=== PATIENT | female | born 1975 | race Caucasian/White ===

== ENCOUNTER → 2016-11-28 | Outpatient (CLI) | payer BC ==
[2016-11-28 16:46] LABS: CHLORIDE,CL 106 mmol/L (98-110); SODIUM,NA 140 mmol/L (136-146)
== END ==
LOC: MW.CHIM 15:25
PROVIDERS: ATTEND Internal Medicine
DX: M79.7 Fibromyalgia (principal); M25.50 Pain in unspecified joint
CPT/HCPCS: 36415; 80048; 85025; 85652; 86430

== ENCOUNTER 2018-10-02 11:05 | Day surgery (SDC) | payer BC ==
[2018-10-02] MEDS ORDERED: Pantoprazole 40 MG Vial IVPUSH ONE (11:21)
[2018-10-02] MEDS ORDERED: HYDROmorphone 1 MG/ML Syringe ONE (11:21)
[2018-10-02] MEDS ORDERED: Ondansetron 4 MG/2 ML SDV ONE ×2 (11:21→15:33)
[2018-10-02] MEDS ORDERED: Ondansetron 4 MG/2 ML SDV IVPUSH ONE (11:21)
[2018-10-02] MEDS ORDERED: Sodium Chloride 0.9% 1,000 ML IV ONE ×2 (11:21→12:11)
[2018-10-02] MEDS ORDERED: HYDROmorphone 1 MG/ML Syringe IVPUSH ONE (11:21)
[2018-10-02] MEDS ORDERED: Pantoprazole 40 MG Vial ONE (11:22)
[2018-10-02] MEDS ORDERED: Sodium Chloride 0.9% 20 ML ONE (11:23)
[2018-10-02] MEDS ORDERED: Ketorolac 30 MG/ML SDV IVPUSH ONE (11:24)
--- NOTE | 2018-10-02 11:27 | EDM.PDOC ---
ED HPI GENERAL MEDICAL PROBLEM - General Chief Complaint: Gastrointestinal Problem Stated Complaint: FLU Time Seen by Provider: 10/02/18 11:15 - History of Present Illness INITIAL COMMENTS - FREE TEXT/NARRATIVE: HISTORY AND PHYSICAL: History of present illness: Patient's 42-year-old white female who presents with concern of nausea vomiting diarrhea has been with associated abdominal pain and has been quite severe at times she had prior bowel obstruction she has had cholecystectomy and hysterectomy. No reported fever chills trauma or other concern Review of systems: As per history of present illness and below otherwise all systems reviewed and negative. Past medical history: As per history of present illness and as reviewed below otherwise noncontributory. Surgical history: As per history of present illness and as reviewed below otherwise noncontributory. Social history: No reported history of drug or alcohol abuse. Family history: As per history of present illness and as reviewed below otherwise noncontributory. Physical exam: HEENT: Atraumatic, normocephalic, pupils reactive, negative for conjunctival pallor or scleral icterus, mucous membranes dry, throat clear, neck supple, nontender, trachea midline. Lungs: Clear to auscultation, breath sounds equal bilaterally, chest nontender. Heart: S1S2, regular, negative for clicks, rubs, or JVD. Abdomen: Soft, nondistended, no localized tenderness. Negative for masses or hepatosplenomegaly. Negative for costovertebral tenderness. Pelvis: Stable nontender. Genitourinary: Deferred. Rectal: Deferred. Extremities: Atraumatic, negative for cords or calf pain. Neurovascular unremarkable. Neuro: Awake, alert, oriented. Cranial nerves II through XII unremarkable. Cerebellum unremarkable. Motor and sensory unremarkable throughout. Exam nonfocal. Diagnostics: CBC CMP amylase lipase UA chest x-ray CT abdomen and pelvis stool for C&S O&P and C. difficile Therapeutics: Saline 1 L bolus Zofran 4 mg IV Toradol 30 mg IV Dilaudid 1 mg IV Protonix 80 milligrams IV Impression: #1 vomiting/diarrhea with dehydration #2 abdominal pain prior bowel obstruction Definitive disposition and diagnosis as appropriate pending reevaluation and review of above. Abdominal Pain Score (Numeric/FACES): 8 - Related Data Allergies Allergy/AdvReac Type Severity Reaction Status Date / Time clarithromycin [From Biaxin] Allergy Rash Verified 10/02/18 11:14 latex Allergy Rash Verified 10/02/18 11:13 levofloxacin [From Levaquin] Allergy Rash Verified 10/02/18 11:14 moxifloxacin [From Avelox] Allergy Swelling Verified 10/02/18 11:14 Home Meds: Home Meds Sertraline [Zoloft] 25 mg PO DAILY 10/02/18 [History] traMADol [Ultram] 50 mg PO TID 10/02/18 [History] Past Medical History Gastrointestinal History: Reports: Bowel Obstruction Other [employer] History: hysterectomy - Infectious Disease History Infectious Disease History: Reports: Chicken Pox - Past Surgical History GI Surgical History: Reports: Cholecystectomy Social & Family History - Family History Family Medical History: Noncontributory - Tobacco Use Smoking Status *Q: Current Every Day Smoker Years of Tobacco use: 20 Packs/Tins Daily: 0.5 - Caffeine Use Caffeine Use: Reports: Coffee, Soda - Recreational Drug Use Recreational Drug Use: No ED ROS GENERAL - Review of Systems Review Of Systems: ROS reveals no pertinent complaints other than HPI. ED EXAM, GENERAL - Physical Exam Exam: See Below (See dictation) Course - Vital Signs Last Recorded V/S: Last Vital Signs Temp 36.1 C 10/02/18 11:15 Pulse 61 10/02/18 11:42 Resp 16 10/02/18 11:42 BP 111/54 L 10/02/18 11:42 Pulse Ox 98 10/02/18 11:42 - Orders/Labs/Meds Orders: Active Orders 24 hr Category Date Time Status EKG Documentation Completion [RC] STAT Care 10/02/18 11:20 Active CDIFF TOX A+B [OP] Stat Lab 10/02/18 11:28 Ordered CULTURE STOOL + CAMPY+SHIGATOX [RM] Stat Lab 10/02/18 11:28 Ordered UA RFX SOFÍA AND CULT IF INDIC [URIN] Stat Lab 10/02/18 11:20 Ordered Sodium Chloride 0.9% [Normal Saline] 1,000 ml Med 10/02/18 12:11 Active IV .Bolus Medication Orders Sodium Chloride (Normal Saline) 1,000 mls @ 999 mls/hr IV .Bolus ONE Stop: 10/02/18 13:11 Labs: Laboratory Tests 10/02/18 10/02/18 10/02/18 Range/Units 11:22 11:22 11:22 WBC 18.41 H (4.0-11.0) K/uL RBC 4.52 (4.30-5.90) M/uL Hgb 14.3 (12.0-16.0) g/dL Hct 40.5 (36.0-46.0) % MCV 89.6 (80.0-98.0) fL MCH 31.6 (27.0-32.0) pg MCHC 35.3 (31.0-37.0) g/dL RDW Std Deviation 41.6 (28.0-62.0) fl RDW Coeff of John 13 (11.0-15.0) % Plt Count 277 (150-400) K/uL MPV 9.50 (7.40-12.00) fL Neut % (Auto) 90.4 H (48.0-80.0) % Lymph % (Auto) 7.1 L (16.0-40.0) % [place] % (Auto) 2.1 (0.0-15.0) % Eos % (Auto) 0.2 (0.0-7.0) % Baso % (Auto) 0.2 (0.0-1.5) % Neut # (Auto) 16.6 H (1.4-5.7) K/uL Lymph # (Auto) 1.3 (0.6-2.4) K/uL [place] # (Auto) 0.4 (0.0-0.8) K/uL Eos # (Auto) 0.0 (0.0-0.7) K/uL Baso # (Auto) 0.0 (0.0-0.1) K/uL Nucleated RBC % 0.0 /100WBC Nucleated RBCs # 0 K/uL INR 0.99 Sodium 140 (136-145) mmol/L Potassium 3.6 (3.5-5.1) mmol/L Chloride 104 (98-107) mmol/L Carbon Dioxide 24.6 (21.0-32.0) mmol/L BUN 13 (7.0-18.0) mg/dL Creatinine 0.7 (0.6-1.0) mg/dL Est Cr Clr Drug Dosing 87.49 mL/min Estimated GFR (MDRD) > 60.0 ml/min Glucose 121 H (74-106) mg/dL Calcium 8.9 (8.5-10.1) mg/dL Total Bilirubin 0.5 (0.2-1.0) mg/dL AST 24 (15-37) IU/L ALT 29 (14-63) IU/L Alkaline Phosphatase 64 (46-116) U/L Total Protein 6.9 (6.4-8.2) g/dL Albumin 3.7 (3.4-5.0) g/dL Globulin 3.2 (2.6-4.0) g/dL Albumin/Globulin Ratio 1.2 (0.9-1.6) Amylase 77 (25-115) U/L Lipase 85 (73-393) U/L Meds: Medications Generic Name Dose Route Start Last Admin Trade Name Freq PRN Reason Stop Dose Admin Sodium Chloride 1,000 mls @ 999 mls/hr 10/02/18 12:11 Normal Saline IV 10/02/18 13:11 .Bolus ONE Discontinued Medications Generic Name Dose Route Start Last Admin Trade Name Freq PRN Reason Stop Dose Admin Hydromorphone HCl 1 mg 10/02/18 11:21 10/02/18 11:25 Dilaudid IVPUSH 10/02/18 11:22 1 mg ONETIME ONE Administration Hydromorphone HCl Confirm 10/02/18 11:21 10/02/18 12:03 Dilaudid Administered 10/02/18 11:22 Not Given Dose 1 mg .ROUTE .STK-MED ONE Sodium Chloride 1,000 mls @ 999 mls/hr 10/02/18 11:21 10/02/18 11:25 Normal Saline IV 10/02/18 12:21 999 mls/hr STAT ONE Administration Sodium Chloride Confirm 10/02/18 11:23 10/02/18 12:03 Normal Saline Administered 10/02/18 11:24 Not Given Dose 20 mls @ as directed .ROUTE .STK-MED ONE Ketorolac Tromethamine 30 mg 10/02/18 11:24 10/02/18 11:27 Toradol IVPUSH 10/02/18 11:25 30 mg ONETIME ONE Administration Ondansetron HCl 4 mg 10/02/18 11:21 10/02/18 11:25 Zofran IVPUSH 10/02/18 11:22 4 mg ONETIME ONE Administration Ondansetron HCl Confirm 10/02/18 11:21 10/02/18 12:03 Zofran Administered 10/02/18 11:22 Not Given Dose 4 mg .ROUTE .STK-MED ONE Pantoprazole Sodium 80 mg 10/02/18 11:21 10/02/18 11:27 Protonix Iv IVPUSH 10/02/18 11:22 80 mg .BOLUS ONE Administration Pantoprazole Sodium Confirm 10/02/18 11:22 10/02/18 12:03 Protonix Iv Administered 10/02/18 11:23 Not Given Dose 80 mg .ROUTE .STK-MED ONE Departure - Departure Time of Disposition: 12:34 Disposition: Refer to Observation Condition: Good Clinical Impression: Abdominal pain - Discharge Information Referrals: PCP,Unknown [Primary Care Provider] - Forms: ED Department Discharge - My Orders Last 24 Hours: My Active Orders 10/02/18 11:20 EKG Documentation Completion [RC] STAT UA RFX SOFÍA AND CULT IF INDIC [URIN] Stat 10/02/18 11:28 CDIFF TOX A+B [OP] Stat CULTURE STOOL + CAMPY+SHIGATOX [RM] Stat 10/02/18 12:11 Sodium Chloride 0.9% [Normal Saline] 1,000 ml IV .Bolus - Assessment/Plan Last 24 Hours: My Active Orders 10/02/18 11:20 EKG Documentation Completion [RC] STAT UA RFX SOFÍA AND CULT IF INDIC [URIN] Stat 10/02/18 11:28 CDIFF TOX A+B [OP] Stat CULTURE STOOL + CAMPY+SHIGATOX [RM] Stat 10/02/18 12:11 Sodium Chloride 0.9% [Normal Saline] 1,000 ml IV .Bolus
[2018-10-02 11:59] LABS: CHLORIDE,CL 104 mmol/L (98-107); SODIUM,NA 140 mmol/L (136-145)
--- NOTE | 2018-10-02 12:06 | CR ---
EXAMINATION: Portable chest radiograph. HISTORY: Shortness of breath. FINDINGS: The trachea is midline. The cardiomediastinal silhouette is within normal limits. No pulmonary infiltrates, effusions or pneumothorax. Osseous structures appear unremarkable. IMPRESSION: No acute cardiopulmonary process.
--- NOTE | 2018-10-02 12:14 | CT ---
CT of the abdomen and pelvis without contrast. HISTORY: Pain TECHNIQUE: Axial CT images were obtained of the abdomen and pelvis without contrast. Coronal and sagittal reconstructions obtained. FINDINGS: The lung bases are clear, no pleural effusion. The liver, spleen, adrenal glands, and pancreas appear unremarkable for noncontrast examination. Cholecystectomy clips are noted. There is no bulky retroperitoneal lymphadenopathy. No abdominal ascites. There are no calcifications noted within the kidneys or along the courses of the ureters bilaterally. The large and small bowel are normal in caliber without evidence of obstruction. There is free fluid noted within the pelvis. The appendix is borderline in size at 6 mm with adjacent stranding. The urinary bladder is decompressed. No free air. Increased density noted within the vaginal cuff, this may be secondary to recent hysterectomy, correlate with procedural date. The visualized osseous structures appear normal. IMPRESSION: 1. The appendix is borderline in size adjacent stranding and free fluid. However the majority of the free fluid is lower within the pelvis, and it is uncertain whether this is secondary to appendicitis or if the free pelvic fluid is just incidentally adjacent to the appendix. This is difficult to differentiate without contrast.
--- NOTE | 2018-10-02 13:03 | PCM.HP ---
H&P History of Present Illness - General Date of Service: 10/02/18 Admit Problem/Dx: Admission Diagnosis/Problem Admission Diagnosis/Problem Abdominal pain Source of Information: Patient History Limitations: Reports: No Limitations - History of Present Illness Initial Comments - Free Text/Narative: This 42 year old female with pmh of arthritis and hx of cholecystectomy presented to the ED today with concerns of severe abdominal pain that started last night. She reports post cholecystectomy she developed an ileus and intermittently she feels her body is near this and takes some meds to help. She tried this last night taking some gas X, Zantac but felt that didn't help much. The pain is crampy in nature and initially started in her LUQ and has moved down to LLQ and to her midline. She reports nausea and vomiting. No fevers or chills. No chest pain or SOB. No urinary concerns. In the ED leukocytosis noted at 18,410. BUN 13 and Cr 0.7. Lipase 85. CXR negative. Abd/pelvis CT obtained which reveals appendix is borderline in size with adjacent stranding and free fluid. However the majority of the free fluid is lower within the pelvis, it is uncertain whether this is secondary to appendicitis or if the free pelvic fluid is just incidentally adjacent to the appendix. Dr Moreno consulted in the ED regarding CT findings. In the ED she was given Dilaudid and Toradol for pain along with Zofran and Protonix. NS x2 boluses given. Afebrile and normotensive in the ED. Abdominal Pain Score (Numeric/FACES): 8 - Related Data Allergies/Adverse Reactions: Allergies Allergy/AdvReac Type Severity Reaction Status Date / Time clarithromycin [From Biaxin] Allergy Rash Verified 10/02/18 11:14 latex Allergy Rash Verified 10/02/18 11:13 levofloxacin [From Levaquin] Allergy Rash Verified 10/02/18 11:14 moxifloxacin [From Avelox] Allergy Swelling Verified 10/02/18 11:14 Home Medications: Home Meds Sertraline [Zoloft] 25 mg PO DAILY 10/02/18 [History] traMADol [Ultram] 50 mg PO TID 10/02/18 [History] Past Medical History Cardiovascular History: Reports: None. Denies: Blood Clots/VTE/DVT, CAD, Hypertension, CT Respiratory History: Reports: None. Denies: Asthma, COPD Gastrointestinal History: Reports: Bowel Obstruction Genitourinary History: Reports: None Other OB/BYN History: hysterectomy Musculoskeletal History: Reports: Osteoarthritis (hands) Psychiatric History: Reports: Depression - Infectious Disease History Infectious Disease History: Reports: Chicken Pox - Past Surgical History GI Surgical History: Reports: Cholecystectomy Female Surgical History: Reports: Hysterectomy Social & Family History - Family History Family Medical History: Noncontributory - Tobacco Use Smoking Status *Q: Current Every Day Smoker Years of Tobacco use: 20 Packs/Tins Daily: 0.5 - Caffeine Use Caffeine Use: Reports: Coffee, Soda - Recreational Drug Use Recreational Drug Use: No - Living Situation & Occupation Living situation: Reports: with Significant Other H&P Review of Systems - Review of Systems: Review Of Systems: See Below General: Reports: Malaise. Denies: Fever, Chills HEENT: Reports: No Symptoms. Denies: Headaches, Sore Throat, Visual Changes Pulmonary: Reports: No Symptoms. Denies: Shortness of Breath Cardiovascular: Reports: No Symptoms. Denies: Chest Pain, Edema Gastrointestinal: Reports: Abdominal Pain (LUQ and LLQ and to midline), Diarrhea. Denies: Black Stool, Bloody Stool Genitourinary: Reports: No Symptoms. Denies: Dysuria, Frequency, Retention Musculoskeletal: Reports: No Symptoms Skin: Reports: No Symptoms Psychiatric: Reports: No Symptoms Neurological: Reports: No Symptoms Exam - Exam Exam: See Below - Vital Signs Vital Signs: Last Vital Signs Temp 97.0 F 10/02/18 11:15 Pulse 61 10/02/18 11:42 Resp 16 10/02/18 11:42 BP 111/54 L 10/02/18 11:42 Pulse Ox 98 10/02/18 11:42 Weight: 59.8 kg - Exam General: Alert, Oriented, Cooperative HEENT: Conjunctiva Clear, Mucosa Moist & [place] Lungs: Clear to Auscultation, Normal Respiratory Effort Cardiovascular: Regular Rate, Regular Rhythm GI/Abdominal Exam: Normal Bowel Sounds, Soft, No Distention, No Mass, Tender ( diffusely tender) Extremities: Normal Inspection, Normal Range of Motion, Non-Tender, No Pedal Edema Neuro Extensive - Mental Status: Alert, Oriented x3, Normal Mood/Affect Neuro Extensive - Motor, Sensory, Reflexes: CN II-XII Intact Psychiatric: Alert, Normal Affect, Normal Mood - Patient Data Lab Results Last 24 hrs: Laboratory Results - last 24 hr 10/02/18 10/02/18 10/02/18 Range/Units 11:22 11:22 11:22 WBC 18.41 H (4.0-11.0) K/uL RBC 4.52 (4.30-5.90) M/uL Hgb 14.3 (12.0-16.0) g/dL Hct 40.5 (36.0-46.0) % MCV 89.6 (80.0-98.0) fL MCH 31.6 (27.0-32.0) pg MCHC 35.3 (31.0-37.0) g/dL RDW Std Deviation 41.6 (28.0-62.0) fl RDW Coeff of John 13 (11.0-15.0) % Plt Count 277 (150-400) K/uL MPV 9.50 (7.40-12.00) fL Neut % (Auto) 90.4 H (48.0-80.0) % Lymph % (Auto) 7.1 L (16.0-40.0) % [place] % (Auto) 2.1 (0.0-15.0) % Eos % (Auto) 0.2 (0.0-7.0) % Baso % (Auto) 0.2 (0.0-1.5) % Neut # (Auto) 16.6 H (1.4-5.7) K/uL Lymph # (Auto) 1.3 (0.6-2.4) K/uL [place] # (Auto) 0.4 (0.0-0.8) K/uL Eos # (Auto) 0.0 (0.0-0.7) K/uL Baso # (Auto) 0.0 (0.0-0.1) K/uL Nucleated RBC % 0.0 /100WBC Nucleated RBCs # 0 K/uL INR 0.99 Sodium 140 (136-145) mmol/L Potassium 3.6 (3.5-5.1) mmol/L Chloride 104 (98-107) mmol/L Carbon Dioxide 24.6 (21.0-32.0) mmol/L BUN 13 (7.0-18.0) mg/dL Creatinine 0.7 (0.6-1.0) mg/dL Est Cr Clr Drug Dosing 87.49 mL/min Estimated GFR (MDRD) > 60.0 ml/min Glucose 121 H (74-106) mg/dL Calcium 8.9 (8.5-10.1) mg/dL Total Bilirubin 0.5 (0.2-1.0) mg/dL AST 24 (15-37) IU/L ALT 29 (14-63) IU/L Alkaline Phosphatase 64 (46-116) U/L Total Protein 6.9 (6.4-8.2) g/dL Albumin 3.7 (3.4-5.0) g/dL Globulin 3.2 (2.6-4.0) g/dL Albumin/Globulin Ratio 1.2 (0.9-1.6) Amylase 77 (25-115) U/L Lipase 85 (73-393) U/L Result Diagrams: 10/02/18 11:22 10/02/18 11:22 - Problem List (1) Abdominal pain SNOMED Code(s): 37604593 ICD Code: R10.9 - UNSPECIFIED ABDOMINAL PAIN Status: Acute Current Visit : Yes Problem List Initiated/Reviewed/Updated: Yes Orders Last 24hrs: Active Orders 24 hr Category Date Time Status Patient Status [ADT] Stat ADT 10/02/18 12:34 Active EKG Documentation Completion [RC] STAT Care 10/02/18 11:20 Active Notify Provider Consults [RC] ASDIRECTED Care 10/02/18 12:36 Active Consult to Physician [CONS] Stat Cons 10/02/18 12:36 Active CDIFF TOX A+B [OP] Stat Lab 10/02/18 11:28 Ordered CULTURE STOOL + CAMPY+SHIGATOX [RM] Stat Lab 10/02/18 11:28 Ordered UA RFX SOFÍA AND CULT IF INDIC [URIN] Stat Lab 10/02/18 11:20 Ordered Sodium Chloride 0.9% [Normal Saline] 1,000 ml Med 10/02/18 12:11 Active IV .Bolus Medication Orders Sodium Chloride (Normal Saline) 1,000 mls @ 999 mls/hr IV .Bolus ONE Stop: 10/02/18 13:11 Last Admin: 10/02/18 12:43 Dose: 999 mls/hr
[2018-10-02] MEDS ORDERED: fentaNYL 100 MCG/2 ML SDV IVPUSH ONE (13:05)
[2018-10-02] MEDS ORDERED: Sodium Chloride 0.9% 1,000 ML IV SCH (13:30)
[2018-10-02] MEDS ORDERED: cefOXitin 2 GM in Premix Bag 1 BAG IV ONE (14:00)
--- NOTE | 2018-10-02 15:03 | PCM.SN ---
- Free Text/Narrative Note: pt seen, chart reviewed; abd pain periumbilical, diffuse, turned rlq after 12 hrs; wbc 18; ct w dilated appendix, and periappendiceal stranding and free fluid ; exam, localized pain at mcBurney point, and Rovsing sign; and pain upon jumping; pt co u/v and cannot keep anything down; offered appendectomy; pt would like to think about it. After talking to fam member, pt agree to proceed w appendectomy, lap vs open; [place], 8% of normal appendectomy; pt voiced understanding, and proceed ; rb dw pt re bleeding/infection/postop course/pain, pt concur and proceed; hp dictated
--- NOTE | 2018-10-02 15:05 | PCM.PREANE ---
Preanesthetic Assessment - Anesthesia/Transfusion/Family Hx Anesthesia History: Prior Anesthesia Without Reaction Family History of Anesthesia Reaction: No Intubation History: Unknown - Review of Systems General: No Symptoms Pulmonary: No Symptoms Cardiovascular: No Symptoms Gastrointestinal: Abdominal Pain Neurological: No Symptoms Other: Reports: None - Physical Assessment O2 Sat by Pulse Oximetry: 96 Respiratory Rate: 16 Vital Signs: Last Vital Signs Temp 36.1 C 10/02/18 11:15 Pulse 77 10/02/18 13:30 Resp 16 10/02/18 13:30 BP 94/44 L 10/02/18 13:30 Pulse Ox 96 10/02/18 13:30 Height: 1.6 m Weight: 59.8 kg ASA Class: 2E Mental Status: Alert & Oriented x3 Airway Class: Mallampati = 2 Dentition: Reports: Normal Dentition Thyro-Mental Finger Breadths: 3 Mouth Opening Finger Breadths: 2 ROM/Head Extension: Full Lungs: Clear to Auscultation, Normal Respiratory Effort Cardiovascular: Regular Rate, Regular Rhythm - Lab Values: Laboratory Last Values WBC 18.41 K/uL (4.0-11.0) H 10/02/18 11:22 RBC 4.52 M/uL (4.30-5.90) 10/02/18 11:22 Hgb 14.3 g/dL (12.0-16.0) 10/02/18 11:22 Hct 40.5 % (36.0-46.0) 10/02/18 11:22 MCV 89.6 fL (80.0-98.0) 10/02/18 11:22 MCH 31.6 pg (27.0-32.0) 10/02/18 11:22 MCHC 35.3 g/dL (31.0-37.0) 10/02/18 11:22 RDW Std Deviation 41.6 fl (28.0-62.0) 10/02/18 11:22 RDW Coeff of John 13 % (11.0-15.0) 10/02/18 11:22 Plt Count 277 K/uL (150-400) 10/02/18 11:22 MPV 9.50 fL (7.40-12.00) 10/02/18 11:22 Neut % (Auto) 90.4 % (48.0-80.0) H 10/02/18 11:22 Lymph % (Auto) 7.1 % (16.0-40.0) L 10/02/18 11:22 [place] % (Auto) 2.1 % (0.0-15.0) 10/02/18 11:22 Eos % (Auto) 0.2 % (0.0-7.0) 10/02/18 11:22 Baso % (Auto) 0.2 % (0.0-1.5) 10/02/18 11:22 Neut # (Auto) 16.6 K/uL (1.4-5.7) H 10/02/18 11:22 Lymph # (Auto) 1.3 K/uL (0.6-2.4) 10/02/18 11:22 [place] # (Auto) 0.4 K/uL (0.0-0.8) 10/02/18 11:22 Eos # (Auto) 0.0 K/uL (0.0-0.7) 10/02/18 11:22 Baso # (Auto) 0.0 K/uL (0.0-0.1) 10/02/18 11:22 Nucleated RBC % 0.0 /100WBC 10/02/18 11:22 Nucleated RBCs # 0 K/uL 10/02/18 11:22 INR 0.99 10/02/18 11:22 Sodium 140 mmol/L (136-145) 10/02/18 11:22 Potassium 3.6 mmol/L (3.5-5.1) 10/02/18 11:22 Chloride 104 mmol/L (98-107) 10/02/18 11:22 Carbon Dioxide 24.6 mmol/L (21.0-32.0) 10/02/18 11:22 BUN 13 mg/dL (7.0-18.0) 10/02/18 11:22 Creatinine 0.7 mg/dL (0.6-1.0) 10/02/18 11:22 Est Cr Clr Drug Dosing 87.49 mL/min 10/02/18 11:22 Estimated GFR (MDRD) > 60.0 ml/min 10/02/18 11:22 Glucose 121 mg/dL (74-106) H 10/02/18 11:22 Calcium 8.9 mg/dL (8.5-10.1) 10/02/18 11:22 Total Bilirubin 0.5 mg/dL (0.2-1.0) 10/02/18 11:22 AST 24 IU/L (15-37) 10/02/18 11:22 ALT 29 IU/L (14-63) 10/02/18 11:22 Alkaline Phosphatase 64 U/L (46-116) 10/02/18 11:22 Total Protein 6.9 g/dL (6.4-8.2) 10/02/18 11:22 Albumin 3.7 g/dL (3.4-5.0) 10/02/18 11:22 Globulin 3.2 g/dL (2.6-4.0) 10/02/18 11:22 Albumin/Globulin Ratio 1.2 (0.9-1.6) 10/02/18 11:22 Amylase 77 U/L (25-115) 10/02/18 11:22 Lipase 85 U/L (73-393) 10/02/18 11:22 - Allergies Allergies/Adverse Reactions: Allergies Allergy/AdvReac Type Severity Reaction Status Date / Time clarithromycin [From Biaxin] Allergy Rash Verified 10/02/18 11:14 latex Allergy Rash Verified 10/02/18 11:13 levofloxacin [From Levaquin] Allergy Rash Verified 10/02/18 11:14 moxifloxacin [From Avelox] Allergy Swelling Verified 10/02/18 11:14 - Blood Blood Available: No - Anesthesia Plan Pre-Op Medication Ordered: None - Acknowledgements Anesthesia Type Planned: General Anesthesia Pt an Appropriate Candidate for the Planned Anesthesia: Yes Alternatives and Risks of Anesthesia Discussed w Pt/Guardian: Yes Pt/Guardian Understands and Agrees with Anesthesia Plan: Yes PreAnesthesia Questionnaire Gastrointestinal History: Reports: Bowel Obstruction, Other (See Below) (acute appendicitis) Other OB/BYN History: hysterectomy - Infectious Disease History Infectious Disease History: Reports: Chicken Pox - Past Surgical History GI Surgical History: Reports: Cholecystectomy Female Surgical History: Reports: Hysterectomy - SUBSTANCE USE Smoking Status *Q: Current Every Day Smoker (up to 1/2 per day) Recreational Drug Use History: No - HOME MEDS Home Medications: Home Meds Sertraline [Zoloft] 25 mg PO DAILY 10/02/18 [History] traMADol [Ultram] 50 mg PO TID 10/02/18 [History] - CURRENT (IN HOUSE) MEDS Current Meds: Current Medications Sodium Chloride (Normal Saline) 1,000 mls @ 150 mls/hr IV ASDIRECTED MARVEL Last Admin: 10/02/18 13:27 Dose: 150 mls/hr Discontinued Medications Fentanyl (Sublimaze) 50 mcg IVPUSH STAT ONE Stop: 10/02/18 13:06 Last Admin: 10/02/18 13:16 Dose: 50 mcg Hydromorphone HCl (Dilaudid) 1 mg IVPUSH ONETIME ONE Stop: 10/02/18 11:22 Last Admin: 10/02/18 11:25 Dose: 1 mg Hydromorphone HCl (Dilaudid) Confirm Administered Dose 1 mg .ROUTE .STK-MED ONE Stop: 10/02/18 11:22 Last Admin: 10/02/18 12:03 Dose: Not Given Sodium Chloride (Normal Saline) 1,000 mls @ 999 mls/hr IV STAT ONE Stop: 10/02/18 12:21 Last Admin: 10/02/18 11:25 Dose: 999 mls/hr Sodium Chloride (Normal Saline) Confirm Administered Dose 20 mls @ as directed .ROUTE .STK-MED ONE Stop: 10/02/18 11:24 Last Admin: 10/02/18 12:03 Dose: Not Given Sodium Chloride (Normal Saline) 1,000 mls @ 999 mls/hr IV .Bolus ONE Stop: 10/02/18 13:11 Last Admin: 10/02/18 12:43 Dose: 999 mls/hr Cefoxitin Sodium 2 gm/ Premix 50 mls @ 100 mls/hr IV ONETIME ONE Stop: 10/02/18 14:29 Last Admin: 10/02/18 14:13 Dose: 100 mls/hr Ketorolac Tromethamine (Toradol) 30 mg IVPUSH ONETIME ONE Stop: 10/02/18 11:25 Last Admin: 10/02/18 11:27 Dose: 30 mg Ondansetron HCl (Zofran) 4 mg IVPUSH ONETIME ONE Stop: 10/02/18 11:22 Last Admin: 10/02/18 11:25 Dose: 4 mg Ondansetron HCl (Zofran) Confirm Administered Dose 4 mg .ROUTE .STK-MED ONE Stop: 10/02/18 11:22 Last Admin: 10/02/18 12:03 Dose: Not Given Pantoprazole Sodium (Protonix Iv) 80 mg IVPUSH .BOLUS ONE Stop: 10/02/18 11:22 Last Admin: 10/02/18 11:27 Dose: 80 mg Pantoprazole Sodium (Protonix Iv) Confirm Administered Dose 80 mg .ROUTE .STK -MED ONE Stop: 10/02/18 11:23 Last Admin: 10/02/18 12:03 Dose: Not Given
[2018-10-02] MEDS ORDERED: Scopolamine 1.5 MG Transdermal Patch TRDERM PRN (15:13)
[2018-10-02] MEDS ORDERED: Scopolamine 1.5 MG Transdermal Patch ONE (15:19)
[2018-10-02] MEDS ORDERED: fentaNYL 250 MCG/5 ML SDV ONE (15:27)
[2018-10-02] MEDS ORDERED: Midazolam 1 MG/ML 2 ML SDV ONE (15:27)
[2018-10-02] MEDS ORDERED: Propofol 200 MG/20 ML SDV ONE (15:27)
[2018-10-02] MEDS ORDERED: Dexamethasone 4 MG/ML 5 ML MDV ONE (15:33)
[2018-10-02] MEDS ORDERED: Succinylcholine 200 MG/10 ML MDV ONE (15:35)
[2018-10-02] MEDS ORDERED: Rocuronium 10 MG/ML 10 ML Syringe ONE (15:35)
[2018-10-02] MEDS ORDERED: Glycopyrrolate 0.2 MG/ML SDV ONE (15:37)
[2018-10-02] MEDS ORDERED: Neostigmine Methylsulfate 1 MG/ML 5 ML Syringe ONE (15:37)
[2018-10-02] MEDS ORDERED: cefOXitin 100 ML ONE (15:47)
[2018-10-02] MEDS ORDERED: Bupivacaine 25%/EPINEPHrine/PF 30 ML ONE (15:56)
[2018-10-02] MEDS ORDERED: Sugammadex Sodium 200 MG/2 ML VIAL ONE (16:23)
[2018-10-02] MEDS ORDERED: Octyl 2-Cyanoacrylate 1 Tube ONE (17:16)
--- NOTE | 2018-10-02 17:55 | PCM.OPNOTE ---
- General Post-Op/Procedure Note Date of Surgery/Procedure: 10/02/18 Operative Procedure(s): lap appendectomy Findings: appendix is dilated, and indurated and hyperemic cw appendicitis; appendicolith at distal end; gross perf not observed [id number] Pre Op Diagnosis: acute appendicitis Post-Op Diagnosis: Same Primary Surgeon: Abner Moreno Pathology: sent Complications: None Condition: Fair
[2018-10-02] MEDS ORDERED: Morphine 4 MG/ML Syringe IVPUSH PRN (17:57)
[2018-10-02] MEDS ORDERED: Acetaminophen 325 MG Tab PO PRN (17:58)
[2018-10-02] MEDS ORDERED: Acetaminophen/oxyCODONE 325-5 MG Tab PO PRN (17:58)
[2018-10-02] MEDS ORDERED: Ondansetron 4 MG/2 ML SDV IVPUSH PRN (17:59)
[2018-10-02] MEDS ORDERED: Diazepam 2 MG Tab PO PRN (18:00)
--- NOTE | 2018-10-02 18:14 | PCM.POSTAN ---
POST ANESTHESIA ASSESSMENT - MENTAL STATUS Mental Status: Alert - VITAL SIGNS Pulse Rate: 96 SaO2: 98 (RA) Resp Rate: 16 Blood Pressure: 97/55 Temperature: 36.8 C - RESPIRATORY Respiratory Status: Respiratory Rate WNL - CARDIOVASCULAR CV Status: Pulse Rate WNL - GASTROINTESTINAL GI Status: No Symptoms - PAIN Pain Score: 1 (Received Ofirmev and Toradol in OR. MSo4 4 mg PAR) Free Text/Narrative:: Doing well. Bladder irritation from reynolds most bothersome now. - POST OP HYDRATION Hydration Status: Adequate & Stable - OBSERVATIONS Free Text/Narrative:: Doing well. Ready for transfer to floor.
[2018-10-02] MEDS: Lactated Ringers 1,000 ML IV SCH (18:40)
[2018-10-02] MEDS: cefOXitin 1 GM in Premix Bag 1 BAG IV SCH (19:04)
--- NOTE | 2018-10-02 23:47 | OR ---
SURGEON: Abner Moreno MD DATE OF PROCEDURE: 10/02/2018 PREOPERATIVE DIAGNOSIS: Acute appendicitis. POSTOPERATIVE DIAGNOSIS: Acute appendicitis. PROCEDURE PERFORMED: Laparoscopic appendectomy. COMPLICATION: None. FINDINGS: Appendix is dilated and the tip of the appendix is appendicolith. Also, the appendix is hyperemic consistent with appendicitis. PROCEDURE IN DETAIL: The patient was taken to the operating room and placed in the supine position. Following induction of general endotracheal anesthesia, the patient's abdomen was prepped and draped in the sterile fashion. A time-out has been called. The patient was identified. The procedure was identified. The antibiotics were identified. The procedure then proceeded. The abdomen was prepped and draped in a standard fashion. After assessment of appropriate landmarks, a 12 millimeter trocar was inserted supraumbilically using Optiview and pneumoperitoneum was then achieved. This was followed with placement of 5 millimeter port in the right upper quadrant and another 5 millimeter port infraumbilically. The camera was inserted supraumbilical site and two laparoscopic Greenwood retractors were then inserted through the other two sites. Following the cecum, the appendix was located. The appendix was then lifted up, and using a GI stapler the appendix was amputated at the base. And using the GI stapler, the mesoappendix was then amputated. The appendix was retrieved by an endoscopic bag and sent for pathologist. This was then followed by re-insertion of the camera to examine the staple line, and hemostasis. The trocars were then removed. The umbilical site was closed with 2-0 Vicryl deep stitch and 4 -0 Vicryl and dermabond; the other 2 5 mm port sites were closed with 4-0 Vicryl and dermabond. The patient was then awakened, extubated, and transferred to the recovery room in hemodynamically stable condition. Prior to closing, sponge count and instrument count was correct. Dr. Moreno was present throughout the whole procedure. As always, thank you for the kind referral. INTRAOPERATIVE FINDINGS: As dictated above. As always, thank you for your kind referral. ROMERO / RAYMOND /[id number]
[2018-10-03] MEDS: Ketorolac 15 MG/ML SDV IVPUSH PRN ×2 (01:02→09:07)
[2018-10-03] MEDS: cefOXitin 1 GM in Premix Bag 1 BAG IV SCH (01:07)
[2018-10-03] MEDS: Lactated Ringers 1,000 ML IV SCH (02:35)
--- NOTE | 2018-10-03 06:52 | PCM48HPAN ---
Post Anesthesia Note - EVALUATION WITHIN 48HRS OF ANESTHETIC Vital Signs in Normal Range: Yes Patient Participated in Evaluation: Yes Respiratory Function Stable: Yes Airway Patent: Yes Cardiovascular Function Stable: Yes Hydration Status Stable: Yes Pain Control Satisfactory: Yes Nausea and Vomiting Control Satisfactory: Yes Mental Status Recovered: Yes Pulse Rate: 96 Resp Rate: 18 Temperature: 36.8 C Blood Pressure: 97/55 - COMMENTS/OBSERVATIONS Free Text/Narrative:: no anesthesia problems
[2018-10-03] MEDS ORDERED: Sertraline 25 MG Tab PO SCH (09:00)
--- NOTE | 2018-10-03 09:45 | HP ---
DATE OF : 1975 PRIMARY CARE PHYSICIAN: Unknown PCP H&P AND EMERGENCY ROOM CONSULT: CONCERNING QUESTION: Abdominal pain. HISTORY OF PRESENT ILLNESS: The patient is a 42-year-old lady and of Dr. Lares and complained of 14-hour history of acute onset of periumbilical pain, subsequently migrated to the right lower quadrant. The patient also was nauseated and anorexic. For the last 12 hours, the patient only had sips of water but threw it all up and cannot even keep it down. The patient remarked the pain is sharp and, on the pain scale, is 8/10, and when the car stopped in front of the stoplight when coming to the hospital, pain intensified. Denied prior episode. Denied fever. PAST MEDICAL HISTORY: Significant for no diabetes, OR, CVA, or hypertension. PAST SURGICAL HISTORY: Laparoscopic cholecystectomy and transvaginal hysterectomy. REVIEW OF SYSTEMS: Same as in history of present illness. FAMILY HISTORY: Noncontributory. ALLERGIES: Please refer nursing for details. MEDICATION: Please refer nursing for details. PHYSICAL EXAMINATION: GENERAL: A very pleasant lady, smiled to the doctor, in mild distress. HEENT: Normocephalic and atraumatic. Sclerae anicteric. LUNGS: Clear to auscultation. HEART: Regular rate and rhythm. ABDOMEN: Soft, nondistended. No pulsating tender midline abdominal structure. No hernia. Exquisite tenderness, well localized in the McBurney's point. No Rovsing sign. No rebound tenderness. When I asked the patient to jump up and down, the patient hurting on the right lower quadrant. LABORATORY DATA: White count is 18. CAT scan shows stranding with free fluid around the appendix. The appendix is mildly dilated. IMPRESSION: Clinical picture acute appendicitis, would benefit from a laparoscopic appendectomy versus open. Risks and benefits discussed with the patient, including bleeding, infection, and postop course and pain management. The patient is trying to make a decision, considering management and to proceed with surgery. We will put IV fluid to 150 and put on Mefoxin 2 g IV and check with OR schedule. As always thank you for the referral. ROMERO / RAYMOND /[id number]
== END 2018-10-03 09:43 | disposition home or self-care (01) ==
LOC: MW.ED 11:05 → MW.SDS 13:59 → MW.MS 18:39 → MW.SDS 10-03 09:43
PROVIDERS: ATTEND Surgery
DX: K35.80 Unspecified acute appendicitis (principal); K38.1 Appendicular concretions; F17.210 Nicotine dependence, cigarettes, uncomplicated
CPT/HCPCS: 36415; 44970; 71045; 74176; 80053; 81001; 82150; 83690; 85025; 85610; 96361; 96374; 96375; 99285; A9270; C1776; C9113; J0131; J0330; J0694; J1100; J1170; J1885; J2001; J2250; J2270; J2405; J2704; J3010; J3490; J7040; J7120